=== PATIENT | male | born 1955 | race Caucasian/White ===

== ENCOUNTER 2019-02-28 | Inpatient (IN) | payer BC ==
[~2019-02-28] VITALS: Ht 188 cm; Wt 77.4 kg
[~2019-02-28] MED LIST: PRINZIDE 12.5 M1 TAB PO
[2019-03-01] VITALS (8 sets, daily range): BP systolic 112–133; BP diastolic 58–77; PULSE 51–71; TEMP 97.9–98.2
--- NOTE | 2019-03-01 00:38 | NUR ---
Patient arrived via EMS from [place]. Patient a/o x4. In bed, dangling at bedside. Denies pain. Attempted to notify SARAH Viera of arrival, waiting for return call. [facility] also notified myself of elevated d-dimer, at 1.64. Attempted to notify SARAH Lui. Waiting for a call back.
--- NOTE | 2019-03-01 02:03 | NUR ---
SARAH Viera notified of patient's arrival. Also notified Aylin [employer] TECHNICIAN of elevated d-dimer (1.64). En route to see patient.
--- NOTE | 2019-03-01 04:00 | NUR ---
Patient arrived from ER via bed. Transferred to bed with assist x8. Patient a/o x3. Incontinent of urine, large amount. Partial bath given, bed pad changed. Denies pain. Requesting rice catheter. Will notify SARAH Viera of request. Will continue to monitor.
[2019-03-01 06:17] LABS: BASO % 0.4 % (0.0-2.0); EOS # 0.1 (0.0-0.7); GRAN # 4.5 (1.4-6.5); GRAN % 65.9 % (42.2-75.2); HEMATOCRIT 39.5 % (42.0-52.0); HEMOGLOBIN 12.8 g/dl (13.5-18.0); LYMPH # 1.6 (1.2-3.4); LYMPH % 23.4 % (20.0-51.0); MEAN CELL VOLUME 94 fl (80.0-100.0); MEAN CORPUSCULAR HEMOGLOBIN 31 pg (27.0-31.0); MEAN CORPUSCULAR HGB CONC 32 g/dl (33.0-37.0); MEAN PLATELET VOLUME 8.9 fl (7.4-10.4); MONO # 0.6 (0.1-0.6); PLATELET COUNT 255 K/mm3 (130-400); RED BLOOD COUNT 4.19 M/mm3 (4.20-5.60); REDCELL DISTRIBUTION WIDTH-CV 13.2 % (11.5-14.5)
[2019-03-01 06:32] LABS: ALANINE AMINOTRANSFERASE 27 U/L (21-72); ALBUMIN 3.5 gm/dL (3.5-5.0); ALKALINE PHOSPHATASE 56 U/L (50-136); ANION GAP 10 mmol/L (7-16); AST,SGOT 30 U/L (15-37); BILIRUBIN,TOTAL 0.5 mg/dL (0.0-1.0); BLOOD UREA NITROGEN 39 mg/dL (9-20); CALCIUM 8.9 mg/dL (8.4-10.2); CARBON DIOXIDE 24 mmol/L (22-30); CHLORIDE 108 mmol/L (98-107); CREATININE, serum 1.56 (0.66-1.25); GLUCOSE 89 mg/dL (74-106); POTASSIUM 4.2 mmol/L (3.4-5.0); SODIUM 142 mmol/L (137-145); TOTAL PROTEIN 6.4 gm/dL (6.4-8.2)
[2019-03-01 06:40] LABS: ALCOHOL(ethanol),MEDICAL < 10 mg/dL
[2019-03-01 07:06] LABS: TROPONIN-I < 0.012 ng/mL (0.000-0.035)
--- NOTE | 2019-03-01 11:03 | NUR ---
Pt resting in bed awake, no C/O pain at this time, shift assessments complete, left Pt call light in reach, bed in lowest position.
--- NOTE | 2019-03-01 11:06 | NUR ---
NATIVIDAD met with the patient and patient's brother to discuss discharge plan. The patient lives in [place] with his , Becky. He reports independence with ADLs and does not have any DME. The patient's PCP is Dr. Shiva Little and he receives his medications at the [facility]. He reports no difficulties obtaining his meds. The patient does not have advanced directives, but he was interested in obtaining a form for DPOA-HC. NATIVIDAD provided. The patient plans to return home with his upon discharge. No additional needs at this time.
--- NOTE | 2019-03-01 11:45 | NUR ---
First visit from the director index. No needs right now.
--- NOTE | 2019-03-01 18:06 | NUR ---
Pt has been resting in the room, no C/O pain, VS have been stable. He has not had C/O dizziness during the day today, he has been up and is steady on his feet while ambulating.
[2019-03-02 04:26] VITALS: BP 106/57; PULSE 50; TEMP 97.8
[2019-03-02 07:16] LABS: BASO % 0.4 % (0.0-2.0); EOS # 0.1 (0.0-0.7); GRAN # 6.8 (1.4-6.5); GRAN % 72.7 % (42.2-75.2); HEMATOCRIT 38.5 % (42.0-52.0); HEMOGLOBIN 12.4 g/dl (13.5-18.0); LYMPH # 1.8 (1.2-3.4); LYMPH % 19.3 % (20.0-51.0); MEAN CELL VOLUME 95 fl (80.0-100.0); MEAN CORPUSCULAR HEMOGLOBIN 31 pg (27.0-31.0); MEAN CORPUSCULAR HGB CONC 32 g/dl (33.0-37.0); MONO # 0.6 (0.1-0.6); MONO % 6.2 % (1.7-9.3); PLATELET COUNT 256 K/mm3 (130-400); RED BLOOD COUNT 4.07 M/mm3 (4.20-5.60); REDCELL DISTRIBUTION WIDTH-CV 13.1 % (11.5-14.5)
[2019-03-02 07:24] VITALS: BP 117/73; PULSE 52; TEMP 97.9
[2019-03-02 07:26] LABS: CALCIUM 8.5 mg/dL (8.4-10.2); CREATININE, serum 0.99 (0.66-1.25); POTASSIUM 4.5 mmol/L (3.4-5.0)
--- NOTE | 2019-03-02 08:30 | NUR ---
Assessment complete. Patient A&Ox3, denies pain and discomfort. Patient watching TV and laying in bed. VSS. IV CDI, fluids infusing. No further needs expressed from patient. Call light within reach
--- NOTE | 2019-03-02 12:24 | NUR ---
Discharge paperwork reviewed with patient. Patient verbalized an understanding. IV removed tip intact, patient tolerated well. Gauze and bandaid applied. Personal belongings and discharge paperwork withe patient. Nurse walked patient outside. No further needs expressed from patient.
== END 2019-03-02 12:27 | disposition home or self-care (01) | DRG 312 ==
LOC: MEDICAL 23:59
PROVIDERS: Nurse Practitioner; Physician Assistant; ADMIT Family Medicine
DX: I95.1 Orthostatic hypotension (principal); N17.9 Acute kidney failure, unspecified; I10 Essential (primary) hypertension; S01.511A Laceration without foreign body of lip, initial encounter; E86.0 Dehydration; W19.XXXA Unspecified fall, initial encounter; Y93.89 Activity, other specified; Y92.414 Local residential or business street as the place of occurrence of the external cause; Z88.0 Allergy status to penicillin
CPT/HCPCS: 99238; J1644; J7030